=== PATIENT | female | born 1985 | race Caucasian/White ===

== ENCOUNTER 2023-02-15 03:17 | Outpatient (CLI) | payer OTHER | END 2023-02-15 23:59 | disposition critical access hospital (66) | LOC: EMS 03:17 | DX: R41.89 Other symptoms and signs involving cognitive functions and awareness (principal); R45.89 Other symptoms and signs involving emotional state; F10.90 Alcohol use, unspecified, uncomplicated | CPT/HCPCS: A0425; A0427 ==

== ENCOUNTER 2023-02-15 03:35 | Emergency (ER) | payer OTHER ==
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
[2023-02-15 05:34] LABS: MUDS CUTOFF CONCENTRATIONS CUTOFF CONC BELOW:
[2023-02-15 05:47] VITALS: BP 93/53; O2SAT 96
[2023-02-15 06:01] LABS: AMPHETAMINE SCREEN,URINE NEGATIVE (NEGATIVE); BARBITURATE SCREEN,UR NEGATIVE (NEGATIVE); BENZODIAZEPINES SCREEN, URINE NEGATIVE (NEGATIVE); COCAINE SCREEN URINE NEGATIVE (NEGATIVE); METHADONE SCREEN, URINE NEGATIVE (NEGATIVE); METHAMPHETAMINES SCREEN, URINE NEGATIVE (NEGATIVE); OPIATE SCREEN, URINE NEGATIVE (NEGATIVE); OXYCODONE SCREEN, URINE NEGATIVE (NEGATIVE); PROPOXYPHENE SCREEN, URINE NEGATIVE (NEGATIVE); THC CANNABINOID SCREEN, URINE NEGATIVE (NEGATIVE); TRICYCLIC ANTIDEPRESSANT,URINE NEGATIVE (NEGATIVE)
== END 2023-02-15 06:55 | disposition home or self-care (01) ==
LOC: EDUNIT# → ED 03:35
DX: R41.3 Other amnesia (principal)
CPT/HCPCS: 80306; 99283

== ENCOUNTER 2024-01-11 15:07 | Outpatient (CLI) | payer OTHER ==
--- NOTE | 2024-01-11 18:02 | Ultrasound Report ---
PROCEDURE: Pelvic Complete INDICATIONS: DISPLACEMENT OF INTRAUTERINE CONTRACEPTIVE DEVICE TECHNIQUE: Real-time transabdominal scanning was performed of the pelvic organs, with image documentation. COMPARISON: None FINDINGS: Uterus: Uterus is anteverted and normal in size at 8.7 x 3.8 x 5.1 cm. The myometrium is homogeneou s. The endometrium measures 7 mm in combined thickness. The IUD is within the endometrial canal at the uterine fundus, in appropriate position. Ovaries: The right ovary measures 3.7 x 2.4 x 3.0 cm, with a calculated ovarian volume of 13.8 cc. The left ovary measures 2.5 x 2.5 x 2.2 cm, with a calculated ovarian volume of 7.0 cc. The ovaries have a normal sonographic appearance. Less than 12 follicles can be seen in each ovary. No adnexal masses are seen. No cystic lesions measuring greater than 3 cm. Other: No free pelvic fluid. IMPRESSION: The IUD is within the endometrial canal at the uterine fundus, in appropriate position. Reviewed by: Ayde Foster MD on 01/11/2024 6:01 PM PDT Approved by: Ayde Foster MD on 01/11/2024 6:01 PM PDT Station ID: [id number]
== END 2024-01-11 15:08 | disposition home or self-care (01) ==
LOC: DI 15:07
PROVIDERS: ATTEND Internal Medicine
DX: Z97.5 Presence of (intrauterine) contraceptive device (principal)